=== PATIENT | female | born 1965 | race African-American/Black ===

== ENCOUNTER 2017-08-25 14:38 | Inpatient (IN) | payer OTHER ==
--- NOTE | 2017-08-25 15:34 | HP ---
JOSE PEREZ Rehab Assess/Revision - Admission History Admitted to Rehab from: [facility] Date of Admission to Rehab: 08/25/17 - Vital signs Vital Signs: Vital Signs Period Temp Pulse Resp BP Sys/Finley Pulse Ox Last 24 Hr 97.9 F 83 18 140/97 - Findings Detox History & Physical reviewed: Yes Concur with findings: Yes Comments/Additional Findings: transferred from detox to rehab admission as per protocol Inpatient Rehab Admission - Initial Determination Are CD services needed?: Yes Free of communicable disease: Yes Not in need of hospitalization: Yes - Rehab Admission Criteria Previous failed treatment: Yes Poor recovery environment: Yes Comorbidities: Yes Lacks judgement: No Patient is meeting Inpatient Rehab admission criteria:: Yes
[2017-08-25] MEDS ORDERED: IBUPROFEN 400 MG TABLET (FP) PO PRN (15:35)
[2017-08-25] MEDS ORDERED: MAG HYDROX/AL HYDROX/SIMETH 30 ML UNIT-DOSE CUP PO PRN (15:35)
[2017-08-25] MEDS ORDERED: ACETAMINOPHEN 325 MG TABLET (FP) PO PRN (15:35)
[2017-08-25] MEDS ORDERED: LOPERAMIDE HCL 2 MG CAPSULE PO PRN (15:35)
[2017-08-25] MEDS ORDERED: MAGNESIUM CITRATE 300 ML BOTTLE PO PRN (15:35)
[2017-08-25] MEDS ORDERED: NICOTINE POLACRILEX 2 MG GUM BUC PRN (15:35)
[2017-08-25] MEDS ORDERED: P-EPHED 60MG/TRIPROLIDI 2.5MG TABLET PO PRN (15:35)
[2017-08-25] MEDS ORDERED: MENTHOL/PHENOL 1 EACH UD MM PRN (15:35)
[2017-08-25] MEDS ORDERED: MAGNESIUM HYDROX 2400MG/30ML ORAL SUSPENSION 30 ML CUP PO PRN (15:35)
--- NOTE | 2017-08-25 16:08 | HP ---
Psychiatrist Admission - Data Date of interview: 08/25/17 Admission source: [address] [place] [address] Identifying data: This is the first admission to [address] [place] [address] rehabilitation for this 51 yo single AA mother of 34 yo daughter,resides with kathie,supported by [facility]. Medical History: Breast cancer,,HTN. Psychiatric History: Patient denies psychiatric history,but reports being depressed on and off since she was dx with Breast Cancer about 3 years ago.patient is not willing to start any psychotropic medications at present., stating that she will be stable without psych meds. Physical/Sexual Abuse/Trauma History: denies Vital Signs: Vital Signs - 24 hr 08/25/17 15:10 Temperature 97.9 F Pulse Rate 83 Respiratory 18 Rate Blood Pressure 140/97 Allergies/Adverse Reactions: Allergies Allergy/AdvReac Type Severity Reaction Status Date / Time No Known Allergies Allergy Verified 08/21/17 17:10 Date of last physical exam: 08/21/17 Concur with the findings of this exam: Yes - Substance Abuse/Tx History Hx Alcohol Use: Yes (drinking since her teens,i pint of rosmery daily) Hx Substance Use: Yes (crack since 37 y o,heroin since 31 yo 6 bags daily, cannabis since school ag) Substance Use Type: Alcohol, Cocaine Hx Substance Use Treatment: Yes (this is her first inpatient rehabilitation treatment) Mental Status Exam - Mental Status Exam Alert and Oriented to: Time, Place, Person Cognitive Function: Grossly Intact Patient Appearance: Unkempt Mood: Sad, Nervous, Anxious Affect: Labile Patient Behavior: Cooperative Speech Pattern: Clear Voice Loudness: Normal Thought Process: Goal Oriented Thought Disorder: Not Present Hallucinations: Denies Suicidal Ideation: Denies Homicidal Ideation: Denies Insight/Judgement: Fair Sleep: Fair Appetite: Good Muscle strength/Tone: Normal Gait/Station: Normal Psychiatric Findings - Problem List ([place] 1, 2,3) (1) Breast cancer Current Visit: Yes Status: Chronic (2) Cocaine dependence Current Visit: Yes Status: Chronic (3) Nicotine dependence Current Visit: Yes Status: Chronic (4) Substance induced mood disorder Current Visit: Yes Status: Chronic (5) Alcohol dependence Current Visit: Yes Status: Chronic - Initial Treatment Plan Initial Treatment Plan: Will monitor progress,consider antidepressant if needed..
[2017-08-25] MEDS: THIAMINE HCL 100 MG TABLET (FP) PO SCH (21:41)
[2017-08-26] MEDS ORDERED: ENALAPRIL MALEATE 2.5 MG TABLET (FP) PO SCH (10:30)
[2017-08-26] MEDS ORDERED: HYDROCHLOROTHIAZIDE 12.5 MG CAPSULE (FP) PO SCH (10:30)
[2017-08-26] MEDS: ASPIRIN 81 MG CHEWABLE TABLETS PO SCH (10:44)
[2017-08-26] MEDS: PRENATAL VITAMINS W/ FOLIC ACID TABLET (FP) PO SCH (10:44)
--- NOTE | 2017-08-26 12:08 | PN ---
[facility] Progress Note (SOAP) Subjective: would li ke to restart tamoxifen, c/oinsomnia needs to check cxr PPD+ Objective: 08/26/17 12:07 Vital Signs - 24 hr 08/25/17 08/26/17 08/26/17 15:10 06:48 10:58 Temperature 97.9 F 98.1 F Pulse Rate 83 90 86 Respiratory 18 18 16 Rate Blood Pressure 140/97 150/91 152/103 hypertensive, labs reviewed Assessment: 08/26/17 12:07 ca breast - restart tamoxifen htn- restart home bp medsications insomnia - melatonin 08/26/17 12:08 PPD+ - cxr result pending
--- NOTE | 2017-08-26 16:16 | PN ---
S Progress Note Note: called by nurse, bp still elevated after starting home meds, diet changed to low sodium, increase medications give additional dose now. hctz increased from 12.5 to 25mg, enalpril 2.5mg to 5mg
[2017-08-26] MEDS ORDERED: ENALAPRIL MALEATE 2.5 MG TABLET (FP) PO ONE (16:30)
[2017-08-26] MEDS ORDERED: HYDROCHLOROTHIAZIDE 12.5 MG CAPSULE (FP) PO ONE (16:45)
[2017-08-26] MEDS ORDERED: HYDROCHLOROTHIAZIDE 25 MG TABLET (FP) PO SCH (16:45)
[2017-08-26] MEDS: TAMOXIFEN CITRATE 10 MG TABLET PO SCH (17:10)
[2017-08-26] MEDS: THIAMINE HCL 100 MG TABLET (FP) PO SCH (21:36)
[2017-08-26] MEDS: MELATONIN 5 MG TABLETS PO SCH (22:21)
--- NOTE | 2017-08-27 07:31 | PN ---
S Progress Note Note: see for c/o elevated bp. client reports hx/o htn. denies any sx's at this time. she is not sure of her medications but states last taken about 2 weeks ago medication reviewed from out side pharmacy. client is on amlodipine 10mg enalapril 20mg at bed time as per pt chlorthalidone 25mg meds adjusted accordingly. give first dose now
[2017-08-27] MEDS ORDERED: PT OWN MED DRAWER 7, Y5N ONE ×2 (07:34→08:54)
[2017-08-27] MEDS: ASPIRIN 81 MG CHEWABLE TABLETS PO SCH ×2 (07:35→10:09)
[2017-08-27] MEDS: amLODIPine BESYLATE 10 MG TABLET (FP) PO SCH ×2 (07:35→09:16)
[2017-08-27] MEDS: CHLORTHALIDONE 25 MG TABLET PO SCH ×2 (08:19→09:16)
[2017-08-27] MEDS ORDERED: cloNIDine HCL 0.1 MG TABLET PO ONE (09:47)
[2017-08-27] MEDS ORDERED: HYDROCHLOROTHIAZIDE 25 MG TABLET (FP) PO SCH (10:00)
[2017-08-27] MEDS ORDERED: ASPIRIN 81 MG CHEWABLE TABLETS PO SCH (10:00)
[2017-08-27] MEDS: PRENATAL VITAMINS W/ FOLIC ACID TABLET (FP) PO SCH (10:08)
[2017-08-27] MEDS: TAMOXIFEN CITRATE 10 MG TABLET PO SCH (10:09)
--- NOTE | 2017-08-27 12:00 | PN ---
S Progress Note Note: CXR: neg tb, cardiomegaly with congestive changes, increased bp meds to imporve control inculding adding a stronger diuretic, essie santiago
[2017-08-27] MEDS ORDERED: ENALAPRIL MALEATE 5 MG TABLET (FP) PO SCH (12:15)
[2017-08-27] MEDS: ENALAPRIL MALEATE 10 MG TABLET (FP) PO SCH (18:05)
[2017-08-27] MEDS: THIAMINE HCL 100 MG TABLET (FP) PO SCH (21:01)
[2017-08-27] MEDS: MELATONIN 5 MG TABLETS PO SCH (21:57)
[2017-08-28] MEDS ORDERED: PT OWN MED DRAWER 7, Y5N ONE ×2 (08:40→09:57)
[2017-08-28] MEDS: ASPIRIN 81 MG CHEWABLE TABLETS PO SCH (09:55)
[2017-08-28] MEDS: amLODIPine BESYLATE 10 MG TABLET (FP) PO SCH (09:56)
[2017-08-28] MEDS: TAMOXIFEN CITRATE 10 MG TABLET PO SCH (09:56)
[2017-08-28] MEDS: CHLORTHALIDONE 25 MG TABLET PO SCH (09:56)
[2017-08-28] MEDS: PRENATAL VITAMINS W/ FOLIC ACID TABLET (FP) PO SCH (09:57)
[2017-08-28] MEDS: NICOTINE 14 MG/24 HOURS TOPICAL PATCH TD PRN (09:58)
--- NOTE | 2017-08-28 14:14 | PN ---
[facility] Progress Note Note: Patient c/o of dry skin to facial area and flaking, reports pain on the left thumb without decrease movement. Reports she thinks she hit her hand against something while she was using but does not recall. Vital Signs Temperature 97.3 F L 08/28/17 06:48 Pulse Rate 91 H 08/28/17 09:30 Respiratory Rate 18 08/28/17 06:48 Blood Pressure 126/86 08/28/17 09:30 O2 Sat by Pulse Oximetry (%) ROS: HR: denies no chest pain, palpitations, SOB Neuro: denies dizziness, or paresthesia, Musc: denies stiffness, c/p pain on the lef thumb skin: c/o itch and flaking attributes current soap she is using Assessment: GENERAL APPEARANCE: Well developed, well nourished, alert and cooperative, and appears to be in no acute distress. CARDIAC: Normal S1 and S2. No S3, S4 or murmurs. Rhythm is regular. No edema LUNGS: Clear to auscultation and percussion without rales, rhonchi, wheezing or diminished breath sounds. MUSKULOSKELETAL: ROM intact. No joint erythema or tenderness. Normal muscular development. Normal gait. + left thumb pain NEUROLOGICAL: CN II-XII intact. SKIN: Skin no lesions or eruptions. + dry flaky skin Plan: Dermatitis : [place]o soap and hydrocortisone lotion 1% Thumb injury unsp: tylenol, cold compress, xray Continue to monitor
[2017-08-28] MEDS: COLLOIDAL OATMEAL 1 BAR EACH TP PRN (18:11)
[2017-08-28] MEDS: ENALAPRIL MALEATE 10 MG TABLET (FP) PO SCH (18:11)
[2017-08-28] MEDS: THIAMINE HCL 100 MG TABLET (FP) PO SCH (21:41)
[2017-08-28] MEDS: MELATONIN 5 MG TABLETS PO SCH (21:41)
[2017-08-28] MEDS: diphenhydrAMINE HCL 50 MG CAPSULE PO PRN (22:26)
[2017-08-29] MEDS ORDERED: PT OWN MED DRAWER 7, Y5N ONE (08:23)
[2017-08-29] MEDS: CHLORTHALIDONE 25 MG TABLET PO SCH (10:28)
[2017-08-29] MEDS: ASPIRIN 81 MG CHEWABLE TABLETS PO SCH (10:28)
[2017-08-29] MEDS: PRENATAL VITAMINS W/ FOLIC ACID TABLET (FP) PO SCH (10:28)
[2017-08-29] MEDS: amLODIPine BESYLATE 10 MG TABLET (FP) PO SCH (10:28)
[2017-08-29] MEDS: TAMOXIFEN CITRATE 10 MG TABLET PO SCH (10:28)
[2017-08-29] MEDS: NICOTINE 14 MG/24 HOURS TOPICAL PATCH TD PRN (10:44)
--- NOTE | 2017-08-29 14:26 | PN ---
[facility] Progress Note (SOAP) Subjective: requesting results cxr and wrist xray otherwise well Objective: 08/29/17 14:24 Vital Signs - 24 hr 08/28/17 08/29/17 08/29/17 18:00 00:30 03:30 Temperature Pulse Rate 91 H Respiratory 17 18 Rate Blood Pressure 122/89 08/29/17 08/29/17 07:19 10:57 Temperature 98.0 F Pulse Rate 82 83 Respiratory 18 Rate Blood Pressure 142/89 127/85 labs reviewed, xrays reviewed - +cardiomegaly, neg fx Assessment: 08/29/17 14:25 HTN - cotnrolled on triple theary, patient counseled, thumb still sore - immobilize. no nsaids
[2017-08-29] MEDS: ENALAPRIL MALEATE 10 MG TABLET (FP) PO SCH (19:08)
[2017-08-29] MEDS: THIAMINE HCL 100 MG TABLET (FP) PO SCH (21:38)
[2017-08-29] MEDS: MELATONIN 5 MG TABLETS PO SCH (21:38)
[2017-08-29] MEDS: diphenhydrAMINE HCL 50 MG CAPSULE PO PRN (21:39)
[2017-08-30] MEDS ORDERED: PT OWN MED DRAWER 7, Y5N ONE (08:45)
[2017-08-30] MEDS: PRENATAL VITAMINS W/ FOLIC ACID TABLET (FP) PO SCH (09:29)
[2017-08-30] MEDS: ASPIRIN 81 MG CHEWABLE TABLETS PO SCH (09:29)
[2017-08-30] MEDS: CHLORTHALIDONE 25 MG TABLET PO SCH (09:29)
[2017-08-30] MEDS: TAMOXIFEN CITRATE 10 MG TABLET PO SCH (09:30)
[2017-08-30] MEDS: amLODIPine BESYLATE 10 MG TABLET (FP) PO SCH (09:30)
[2017-08-30] MEDS: NICOTINE 14 MG/24 HOURS TOPICAL PATCH TD PRN (11:00)
[2017-08-30] MEDS: ENALAPRIL MALEATE 10 MG TABLET (FP) PO SCH (17:35)
[2017-08-30] MEDS: THIAMINE HCL 100 MG TABLET (FP) PO SCH (21:04)
[2017-08-30] MEDS: MELATONIN 5 MG TABLETS PO SCH (22:23)
[2017-08-31] MEDS ORDERED: PT OWN MED DRAWER 7, Y5N ONE (07:54)
[2017-08-31] MEDS: PRENATAL VITAMINS W/ FOLIC ACID TABLET (FP) PO SCH (09:31)
[2017-08-31] MEDS: amLODIPine BESYLATE 10 MG TABLET (FP) PO SCH (09:31)
[2017-08-31] MEDS: ASPIRIN 81 MG CHEWABLE TABLETS PO SCH (09:31)
[2017-08-31] MEDS: TAMOXIFEN CITRATE 10 MG TABLET PO SCH (09:32)
[2017-08-31] MEDS: CHLORTHALIDONE 25 MG TABLET PO SCH (09:32)
[2017-08-31] MEDS: HYDROCORTISONE 1% TOPICAL LOTION 118 ML BOTTLE TP PRN (09:33)
[2017-08-31] MEDS: NICOTINE 14 MG/24 HOURS TOPICAL PATCH TD PRN (10:26)
[2017-08-31] MEDS: ENALAPRIL MALEATE 10 MG TABLET (FP) PO SCH (18:14)
[2017-08-31] MEDS: THIAMINE HCL 100 MG TABLET (FP) PO SCH (21:28)
[2017-08-31] MEDS: MELATONIN 5 MG TABLETS PO SCH (22:32)
[2017-09-01] MEDS ORDERED: PT OWN MED DRAWER 7, Y5N ONE ×2 (08:38→10:18)
[2017-09-01] MEDS: CHLORTHALIDONE 25 MG TABLET PO SCH (10:08)
[2017-09-01] MEDS: amLODIPine BESYLATE 10 MG TABLET (FP) PO SCH (10:08)
[2017-09-01] MEDS: TAMOXIFEN CITRATE 10 MG TABLET PO SCH (10:08)
[2017-09-01] MEDS: ASPIRIN 81 MG CHEWABLE TABLETS PO SCH (10:08)
[2017-09-01] MEDS: PRENATAL VITAMINS W/ FOLIC ACID TABLET (FP) PO SCH (10:08)
[2017-09-01] MEDS: ENALAPRIL MALEATE 10 MG TABLET (FP) PO SCH (18:00)
[2017-09-01] MEDS: MELATONIN 5 MG TABLETS PO SCH (21:38)
[2017-09-01] MEDS: THIAMINE HCL 100 MG TABLET (FP) PO SCH (21:38)
[2017-09-01] MEDS: MICONAZOLE NITRATE 2% VAGINAL CREAM 45 GM TUBE VG SCH (21:38)
[2017-09-01] MEDS ORDERED: MICONAZOLE NITRATE 100 MG SUPP SUPP.VAG PV SCH (22:00)
[2017-09-02] MEDS ORDERED: PT OWN MED DRAWER 7, Y5N ONE ×2 (07:56→09:31)
[2017-09-02] MEDS: HYDROCORTISONE 1% TOPICAL LOTION 118 ML BOTTLE TP PRN (07:56)
[2017-09-02] MEDS: CHLORTHALIDONE 25 MG TABLET PO SCH (10:22)
[2017-09-02] MEDS: amLODIPine BESYLATE 10 MG TABLET (FP) PO SCH (10:23)
[2017-09-02] MEDS: ASPIRIN 81 MG CHEWABLE TABLETS PO SCH (10:23)
[2017-09-02] MEDS: PRENATAL VITAMINS W/ FOLIC ACID TABLET (FP) PO SCH (10:23)
[2017-09-02] MEDS: TAMOXIFEN CITRATE 10 MG TABLET PO SCH (16:34)
--- NOTE | 2017-09-02 17:33 | PN ---
[facility] Progress Note Note: Patiet c/o of pain on the left thumb Vital Signs Temperature 97.6 F 09/02/17 07:17 Pulse Rate 86 09/02/17 10:00 Respiratory Rate 18 09/02/17 07:17 Blood Pressure 128/84 09/02/17 10:00 O2 Sat by Pulse Oximetry (%) x-rays reviewed with patient, no fracture or edema present. Plan: Continue Ibuprofen PRN Cold compress PRN Continue to monitor
[2017-09-02] MEDS: ENALAPRIL MALEATE 10 MG TABLET (FP) PO SCH (18:24)
[2017-09-02] MEDS: MELATONIN 5 MG TABLETS PO SCH (21:36)
[2017-09-02] MEDS: MICONAZOLE NITRATE 2% VAGINAL CREAM 45 GM TUBE VG SCH (21:36)
[2017-09-02] MEDS: THIAMINE HCL 100 MG TABLET (FP) PO SCH (21:36)
[2017-09-03] MEDS: guaiFENesin/D-METHORPHAN HB 10 ML UNIT-DOSE CUPS PO PRN ×2 (03:37→22:12)
[2017-09-03] MEDS: COLLOIDAL OATMEAL 1 BAR EACH TP PRN (07:36)
[2017-09-03] MEDS ORDERED: PT OWN MED DRAWER 7, Y5N ONE (08:45)
[2017-09-03] MEDS: PRENATAL VITAMINS W/ FOLIC ACID TABLET (FP) PO SCH (10:31)
[2017-09-03] MEDS: amLODIPine BESYLATE 10 MG TABLET (FP) PO SCH (10:31)
[2017-09-03] MEDS: CHLORTHALIDONE 25 MG TABLET PO SCH (10:31)
[2017-09-03] MEDS: TAMOXIFEN CITRATE 10 MG TABLET PO SCH (10:31)
[2017-09-03] MEDS: ASPIRIN 81 MG CHEWABLE TABLETS PO SCH (10:32)
[2017-09-03] MEDS: ENALAPRIL MALEATE 10 MG TABLET (FP) PO SCH (19:00)
[2017-09-03] MEDS: MICONAZOLE NITRATE 2% VAGINAL CREAM 45 GM TUBE VG SCH (21:23)
[2017-09-03] MEDS: MELATONIN 5 MG TABLETS PO SCH (21:24)
[2017-09-03] MEDS: THIAMINE HCL 100 MG TABLET (FP) PO SCH (21:24)
[2017-09-04] MEDS ORDERED: PT OWN MED DRAWER 7, Y5N ONE (08:39)
[2017-09-04] MEDS: TAMOXIFEN CITRATE 10 MG TABLET PO SCH (09:51)
[2017-09-04] MEDS: ASPIRIN 81 MG CHEWABLE TABLETS PO SCH (09:51)
[2017-09-04] MEDS: PRENATAL VITAMINS W/ FOLIC ACID TABLET (FP) PO SCH (09:52)
[2017-09-04] MEDS: CHLORTHALIDONE 25 MG TABLET PO SCH (09:52)
[2017-09-04] MEDS: amLODIPine BESYLATE 10 MG TABLET (FP) PO SCH (09:52)
[2017-09-04] MEDS: HYDROCORTISONE 1% TOPICAL LOTION 118 ML BOTTLE TP PRN (09:52)
[2017-09-04] MEDS: ENALAPRIL MALEATE 10 MG TABLET (FP) PO SCH (17:59)
[2017-09-04] MEDS: MELATONIN 5 MG TABLETS PO SCH (21:33)
[2017-09-04] MEDS: THIAMINE HCL 100 MG TABLET (FP) PO SCH (21:33)
[2017-09-04] MEDS: MICONAZOLE NITRATE 2% VAGINAL CREAM 45 GM TUBE VG SCH (21:34)
[2017-09-05] MEDS ORDERED: PT OWN MED DRAWER 7, Y5N ONE (09:16)
[2017-09-05] MEDS: PRENATAL VITAMINS W/ FOLIC ACID TABLET (FP) PO SCH (10:33)
[2017-09-05] MEDS: ASPIRIN 81 MG CHEWABLE TABLETS PO SCH (10:33)
[2017-09-05] MEDS: amLODIPine BESYLATE 10 MG TABLET (FP) PO SCH (10:33)
[2017-09-05] MEDS: CHLORTHALIDONE 25 MG TABLET PO SCH (10:33)
[2017-09-05] MEDS: TAMOXIFEN CITRATE 10 MG TABLET PO SCH (10:34)
[2017-09-05] MEDS: ENALAPRIL MALEATE 10 MG TABLET (FP) PO SCH (17:53)
[2017-09-05] MEDS: THIAMINE HCL 100 MG TABLET (FP) PO SCH (21:42)
[2017-09-05] MEDS: MELATONIN 5 MG TABLETS PO SCH (21:42)
[2017-09-05] MEDS: MICONAZOLE NITRATE 2% VAGINAL CREAM 45 GM TUBE VG SCH (21:58)
[2017-09-06] MEDS: HYDROCORTISONE 1% TOPICAL LOTION 118 ML BOTTLE TP PRN (10:26)
[2017-09-06] MEDS: ASPIRIN 81 MG CHEWABLE TABLETS PO SCH (10:26)
[2017-09-06] MEDS: amLODIPine BESYLATE 10 MG TABLET (FP) PO SCH (10:26)
[2017-09-06] MEDS: PRENATAL VITAMINS W/ FOLIC ACID TABLET (FP) PO SCH (10:26)
[2017-09-06] MEDS: CHLORTHALIDONE 25 MG TABLET PO SCH (10:27)
[2017-09-06] MEDS: TAMOXIFEN CITRATE 10 MG TABLET PO SCH (10:27)
[2017-09-06] MEDS: ENALAPRIL MALEATE 10 MG TABLET (FP) PO SCH (18:46)
[2017-09-06] MEDS: MICONAZOLE NITRATE 2% VAGINAL CREAM 45 GM TUBE VG SCH (21:49)
[2017-09-06] MEDS: MELATONIN 5 MG TABLETS PO SCH (21:49)
[2017-09-06] MEDS: THIAMINE HCL 100 MG TABLET (FP) PO SCH (21:49)
[2017-09-07] MEDS: guaiFENesin/D-METHORPHAN HB 10 ML UNIT-DOSE CUPS PO PRN (04:18)
[2017-09-07] MEDS: HYDROCORTISONE 1% TOPICAL LOTION 118 ML BOTTLE TP PRN (10:15)
[2017-09-07] MEDS: CHLORTHALIDONE 25 MG TABLET PO SCH (10:16)
[2017-09-07] MEDS: ASPIRIN 81 MG CHEWABLE TABLETS PO SCH (10:16)
[2017-09-07] MEDS: TAMOXIFEN CITRATE 10 MG TABLET PO SCH (10:16)
[2017-09-07] MEDS: PRENATAL VITAMINS W/ FOLIC ACID TABLET (FP) PO SCH (10:16)
[2017-09-07] MEDS: amLODIPine BESYLATE 10 MG TABLET (FP) PO SCH (10:16)
[2017-09-07] MEDS: ENALAPRIL MALEATE 10 MG TABLET (FP) PO SCH (17:59)
[2017-09-07] MEDS: THIAMINE HCL 100 MG TABLET (FP) PO SCH (21:40)
[2017-09-07] MEDS: MELATONIN 5 MG TABLETS PO SCH (21:40)
[2017-09-07] MEDS: MICONAZOLE NITRATE 2% VAGINAL CREAM 45 GM TUBE VG SCH (21:42)
[2017-09-08] MEDS: guaiFENesin/D-METHORPHAN HB 10 ML UNIT-DOSE CUPS PO PRN (04:42)
[2017-09-08] MEDS ORDERED: PT OWN MED DRAWER 7, Y5N ONE (08:12)
[2017-09-08 08:41] VITALS: BP 118/72; PULSE 76; TEMP 98
--- NOTE | 2017-09-08 09:57 | PN ---
Psychiatric Progress Note Vital Signs: Vital Signs Period Temp Pulse Resp BP Sys/Finley Pulse Ox Last 24 Hr 97.6 F-98 F 71-85 18-18 110-129/72-85 Date of Session: 09/08/17 Chief Complaint:: Discharge visit HPI: patient addressed Alcohol and Cocaine dependence comorbid with Substance induced mood disorder. ROS: H/O Breast cancer. Current Medications: Active Medications Generic Name Dose Route Start Last Admin Trade Name Freq PRN Reason Stop Dose Admin Acetaminophen 650 mg 08/25/17 15:35 Tylenol - PO Q4H PRN FEVER Al Hydroxide/Mg Hydroxide 30 ml 08/25/17 15:35 09/02/17 18:27 Mylanta Oral Suspension - PO 30 ml Q6H PRN Administration DYSPEPSIA Amlodipine Besylate 10 mg 08/27/17 07:45 09/07/17 10:16 Norvasc - PO 10 mg DAILY ROSALIA Administration Aspirin 81 mg 08/26/17 10:30 09/07/17 10:16 Asa - PO 81 mg DAILY ROSALIA Administration Chlorthalidone 25 mg 08/27/17 07:45 09/07/17 10:16 Hygroton - PO 25 mg DAILY ROSALIA Administration Colloidal Oatmeal 1 applic 08/28/17 14:07 09/03/17 07:36 Aveeno Soap - TP 1 applic DAILY PRN Administration HYGEINE Diphenhydramine HCl 50 mg 08/26/17 09:17 08/29/17 21:39 Benadryl - PO 50 mg HS PRN Administration INSOMNIA Enalapril Maleate 10 mg 08/27/17 18:00 09/07/17 17:59 Vasotec - PO 10 mg DAILY@1800 ROSALIA Administration Eucalyptus/Menthol/Phenol/Sorbitol 1 each 08/25/17 15:35 Cepastat Lozenge - MM Q4H PRN SORE THROAT Guaifenesin 10 ml 08/25/17 15:35 09/08/17 04:42 Robitussin Dm - PO 10 ml Q6H PRN Administration COUGH Hydrocortisone 1 applic 08/28/17 14:25 09/07/17 10:15 Hytone 1% Lotion - TP 1 applic DAILY PRN Administration DRY SKIN Loperamide HCl 4 mg 08/25/17 15:35 Imodium - PO Q6H PRN DIARRHEA Magnesium Citrate 300 ml 08/25/17 15:35 Citroma - PO Q48H PRN CONSTIPATION Magnesium Hydroxide 30 ml 08/25/17 15:35 09/07/17 21:41 Milk Of Magnesia - PO 30 ml DAILY PRN Administration CONSTIPATION Melatonin 5 mg 08/26/17 22:00 09/07/17 21:40 Melatonin PO 5 mg HS ROSALIA Administration Nicotine 14 mg 08/25/17 16:45 08/31/17 10:26 Nicoderm Patch - TD 14 mg DAILY PRN Administration WITHDRAWAL(CONT SUBST) Nicotine Polacrilex 2 mg 08/25/17 15:35 Nicorette Gum - BUC Q2H PRN NICOTINE REPLACEMENT RX Multivit/Folic Acid/Iron 1 tab 08/26/17 10:00 09/07/17 10:16 Vitamins (Sjr) - PO 1 tab DAILY ROSALIA Administration Pseudoephedrine/Triprolidine 1 combo 08/25/17 15:35 Actifed - PO TID PRN NASAL CONGESTION Tamoxifen Citrate 20 mg 08/26/17 12:15 09/07/17 10:16 Tamoxifen Citrate PO 20 mg DAILY ROSALIA Administration Thiamine HCl 100 mg 08/25/17 22:00 09/07/17 21:40 Vitamin B1 - PO 100 mg HS ROSALIA Administration Current Side Effect: No Lab tests ordered: No Lab tests reviewed: Yes Provider note:: Patient completed this program today.She has met her treatment goals and will continue to address her issues on outpatient basis on [facility] OPD. Patient identifies areas of difficulties and ways she plans to utilize to maintain recovery.Coping skills,support system has been discussed as well. Patient is stable for discharge today. Total face to face time:: 25 Mental Status Exam - Mental Status Exam Alert and Oriented to: Time, Place, Person Cognitive Function: Grossly Intact Patient Appearance: Well Groomed Mood: Euthymic Affect: Appropriate, Mood Congruent Patient Behavior: Cooperative Speech Pattern: Clear Voice Loudness: Normal Thought Process: Goal Oriented Thought Disorder: Not Present Hallucinations: Denies Suicidal Ideation: Denies Homicidal Ideation: Denies Insight/Judgement: Fair Sleep: Well Appetite: Good Muscle strength/Tone: Normal Gait/Station: Normal
[2017-09-08] MEDS: PRENATAL VITAMINS W/ FOLIC ACID TABLET (FP) PO SCH (10:16)
[2017-09-08] MEDS: ASPIRIN 81 MG CHEWABLE TABLETS PO SCH (10:16)
[2017-09-08] MEDS: amLODIPine BESYLATE 10 MG TABLET (FP) PO SCH (10:16)
[2017-09-08] MEDS: TAMOXIFEN CITRATE 10 MG TABLET PO SCH (10:16)
[2017-09-08] MEDS: CHLORTHALIDONE 25 MG TABLET PO SCH (10:16)
== END 2017-09-08 10:25 | disposition home or self-care (01) | DRG 772 ==
LOC: YASAS 14:38 → Y3E 14:40
PROVIDERS: ADMIT Psychiatry & Neurology Psychiatry; ATTEND Psychiatry & Neurology Psychiatry
PROC: HZ42ZZZ Group Counseling for Substance Abuse Treatment, Cognitive-Behavioral (ICD-10-PCS; principal; 2017-08-25)
DX: F10.20 Alcohol dependence, uncomplicated (principal); F14.20 Cocaine dependence, uncomplicated; F17.210 Nicotine dependence, cigarettes, uncomplicated; F19.24 Other psychoactive substance dependence with psychoactive substance-induced mood disorder; F32.9 Major depressive disorder, single episode, unspecified; G47.00 Insomnia, unspecified; I10 Essential (primary) hypertension; L30.9 Dermatitis, unspecified; R76.11 Nonspecific reaction to tuberculin skin test without active tuberculosis; C50.919 Malignant neoplasm of unspecified site of unspecified female breast; S69.82XA Other specified injuries of left wrist, hand and finger(s), initial encounter; X58.XXXA Exposure to other specified factors, initial encounter; Y93.89 Activity, other specified; Y92.89 Other specified places as the place of occurrence of the external cause; Y99.8 Other external cause status
CPT/HCPCS: 71045-TC-FY; 73110-TC-LR-FY; 73130-TC-LR-FY; J0735

== ENCOUNTER 2018-11-04 10:44 | Inpatient (IN) | payer OTHER ==
[2018-11-04 12:51] VITALS: BMI 27.9
--- NOTE | 2018-11-04 15:14 | HP ---
CIWA Score Nausea/Vomitin Muscle Tremors: 2 Anxiety: 2 Agitation: 2 Paroxysmal Sweats: 1-Minimal Palms Moist Orientation: 0-Oriented Tacttile Disturbances: 1-Very Mild Itch/Numbness Auditory Disturbances: 1-Very Mild Visual Disturbances: 0-None Headache: 2-Mild CIWA-Ar Total Score: 13 - Admission Criteria OASAS Guidelines: Admission for Medically Managed Detox: Requires at least one of the followin. CIWA greater than 12 2. Seizures within the past 24 hours 3. Delirium tremens within the past 24 hours 4. Hallucinations within the past 24 hours 5. Acute intervention needed for co occurring medical disorder 6. Acute intervention needed for co occurring psychiatric disorder 7. Severe withdrawal that cannot be handled at a lower level of care (continued vomiting, continued diarrhea, abnormal vital signs) requiring intravenous medication and/or fluids 8. Admission ROS S - HPI Chief Complaint: i need help to stop drinking alcohol cocaine,marijuana Allergies/Adverse Reactions: Allergies Allergy/AdvReac Type Severity Reaction Status Date / Time No Known Allergies Allergy Verified 08/21/17 17:10 History of Present Illness: this 53 years old female with alcohol,cocaine and marijuana dependence,seeking detox,withdrawal symptom, had previous admissions in detox before alcohol related seizure last detox [facility] 08/21/17 to 08/25/17,rehab 08/25/17 to 09/08/17 nicotine dependence 1 pack/day,would like nicotine patch and gum weight loss longest period of sobriety 4 years plan for rehab after detox hypertension on med Exam Limitations: No Limitations - Ebola screening Have you traveled outside of the country in the last 21 days: No (N) Have you had contact with anyone from an Ebola affected area: No Do you have a fever: No - Review of Systems Constitutional: Loss of Appetite, Malaise, Night Sweats, Changes in sleep, Weakness, Unintentional Wgt. Loss EENT: reports: Tearing, Nose Congestion Respiratory: reports: No Symptoms reported Cardiac: reports: No Symptoms Reported GI: reports: Diarrhea, Nausea, Abdominal cramping : reports: No Symptoms Reported Musculoskeletal: reports: Back Pain, Muscle Pain Integumentary: reports: Dryness Neuro: reports: Tremors Endocrine: reports: No Symptoms Reported Hematology: reports: No Symptoms Reported Psychiatric: reports: No Sypmtoms Reported, Judgement Intact, Mood/Affect Appropiate, Orientated x3 Other Systems: Reviewed and Negative Patient History - Patient Medical History Hx Anemia: No Hx Asthma: No Hx Chronic Obstructive Pulmonary Disease (COPD): No Hx Cancer: Yes (stage 1 s/o lumpectomy and radiation left seen pmd) Hx Cardiac Disorders: No Hx Congestive Heart Failure: No Hx Hypertension: Yes (ON MEDS.) Hx Hypercholesterolemia: No Hx Pacemaker: No HX Cerebrovascular Accident: No Hx Seizures: No Hx Dementia: No Hx Diabetes: No Hx Gastrointestinal Disorders: No Hx Liver Disease: No Hx Genitourinary Disorders: No Hx Sexually Transmitted Disorders: No Hx Renal Disease (ESRD): No Hx Thyroid Disease: No Hx Human Immunodeficiency Virus (HIV): No (last 2013 negative) Hx Hepatitis C: No Hx Depression: No Hx Suicide Attempt: No Hx Bipolar Disorder: No Hx Schizophrenia: No Other Medical History: no suiidal,no homicidal - Patient Surgical History Past Surgical History: No Hx Neurologic Surgery: No Hx Cataract Extraction: No Hx Cardiac Surgery: No Hx Lung Surgery: No Hx Breast Surgery: Yes (LUMPECTOMY IN [address] [facility]) Hx Breast Biopsy: No Hx Abdominal Surgery: No Hx Appendectomy: No Hx Cholecystectomy: No Hx Genitourinary Surgery: No Hx Section: No Hx Orthopedic Surgery: No Hx Hysterectomy: No Anesthesia Reaction: No - PPD History Previous Implant?: Yes Documented Results: Positive w/o proof Implanted On Prior [facility] Admission?: No PPD to be Administered?: No - Reproductive History Patient is a Female of Child Bearing Age (11 -55 yrs old): Yes Last Menstrual Period: 10/10/08 Patient : No - Smoking Cessation Smoking history: Current every day smoker Have you smoked in the past 12 months: Yes Aproximately how many cigarettes per day: 20 Hx Chewing Tobacco Use: No Initiated information on smoking cessation: Yes 'Breaking Loose' booklet given: 11/04/18 - Substance & Tx. History Hx Alcohol Use: Yes Hx Substance Use: Yes Substance Use Type: Alcohol, Cocaine Hx Substance Use Treatment: Yes ([facility] 08/21/17 to 08/25/17,rehab 08/25/17 to 07/28) - Substances abused Alcohol Substance route: Oral Frequency: Daily Amount used: Beers- 1 6pk+ Vodka 1pt Age of first use: 14 Date of last use: 11/04/18 Crack Substance route: Smoking Frequency: Daily Amount used: 2 gm Age of first use: 16 Date of last use: 11/04/18 Marijuana/Hashish Substance route: Smoking Frequency: 1-3 times last 30 days Amount used: 5$ Age of first use: 12 Date of last use: 10/31/18 Family Disease History - Family Disease History Family Disease History: Other: Father (alcoholism) Admission Physical Exam [facility] - Vital Signs Vital Signs: Vital Signs - 24 hr 11/04/18 12:44 Temperature 97.8 F Pulse Rate 73 Respiratory 20 Rate Blood Pressure 129/84 - Physical General Appearance: Yes: Moderate Distress, Tremorous, Irritable, Sweating, Anxious HEENTM: Yes: Normal ENT Inspection, MATTHEW, Pharynx Normal Respiratory: Yes: Lungs Clear, Normal Breath Sounds, No Respiratory Distress Neck: Yes: Within Normal Limits, Supple, Trachea in good position Breast: Yes: Breast Exam Deferred Cardiology: Yes: Within Normal Limits, Regular Rhythm, Regular Rate, S1, S2 Abdominal: Yes: Within Normal Limits, Normal Bowel Sounds, Soft Genitourinary: Yes: Within Normal Limits Back: Yes: Normal Inspection, Muscle Spasm Musculoskeletal: Yes: full range of Motion, Back pain, Muscle Pain Extremities: Yes: Tremors Neurological: Yes: travel nurse II-XII NML intact, Fully Oriented, Alert, Motor Strength 5/5 Integumentary: Yes: Dry Lymphatic: Yes: Within Normal Limits - Diagnostic (1) Alcohol dependence with uncomplicated withdrawal Current Visit: No Status: Acute (2) Dehydration Current Visit: No Status: Acute (3) PPD positive Current Visit: No Status: Acute (4) Cocaine dependence Current Visit: No Status: Chronic (5) Nicotine dependence Current Visit: No Status: Chronic (6) Cannabis abuse Current Visit: Yes Status: Acute Cleared for Admission [facility] - Detox or Rehab [facility] Level of Care: Medically Managed Detox Regimen/Protocol: Librium Breathalyzer - Breathalyzer Breathalyzer: 0 Urine Drug Screen - Test Device Lot number: [id number] Expiration date: 10/07/19 - Control Is test valid?: Yes - Results Drug screen NEGATIVE: No Urine drug screen results: THC-Marijuana, GUILLERMINA-Cocaine, BZO-Benzodiazepines Inpatient Rehab Admission - Rehab Decision to Admit Inpatient rehab admission?: No
[2018-11-04] MEDS ORDERED: chlordiazePOXIDE HCL 25 MG CAPSULE PO PRN (15:31)
[2018-11-04] MEDS ORDERED: MAG HYDROX/AL HYDROX/SIMETH 30 ML UNIT-DOSE CUP PO PRN (16:13)
[2018-11-04] MEDS ORDERED: MENTHOL/PHENOL 1 EACH UD MM PRN (16:13)
[2018-11-04] MEDS ORDERED: MAGNESIUM HYDROX 2400MG/30ML ORAL SUSPENSION 30 ML CUP PO PRN (16:13)
[2018-11-04] MEDS ORDERED: ACETAMINOPHEN 325 MG TABLET (FP) PO PRN ×2 (16:13)
[2018-11-04] MEDS ORDERED: MAGNESIUM CITRATE 300 ML BOTTLE PO PRN (16:13)
[2018-11-04] MEDS: ENALAPRIL MALEATE 10 MG TABLET (FP) PO SCH (18:46)
[2018-11-04] MEDS: THIAMINE HCL 100 MG TABLET (FP) PO SCH (22:44)
[2018-11-04] MEDS: chlordiazePOXIDE HCL 25 MG CAPSULE PO SCH (22:44)
[2018-11-05] MEDS: chlordiazePOXIDE HCL 25 MG CAPSULE PO SCH ×4 (05:29→22:49)
[2018-11-05] MEDS: METHOCARBAMOL 500 MG TABLET PO PRN (05:31)
[2018-11-05] MEDS ORDERED: IBUPROFEN 400 MG TABLET (FP) PO PRN (10:29)
[2018-11-05] MEDS: CHLORTHALIDONE 25 MG TABLET PO SCH (10:30)
[2018-11-05] MEDS: amLODIPine BESYLATE 10 MG TABLET (FP) PO SCH (10:30)
[2018-11-05] MEDS: PRENATAL VITAMINS W/ FOLIC ACID TABLET (FP) PO SCH (10:30)
[2018-11-05] MEDS: ASPIRIN 81 MG CHEWABLE TABLETS PO SCH (10:30)
[2018-11-05] MEDS: LIDOCAINE 5% TOPICAL PATCH TP SCH (11:07)
--- NOTE | 2018-11-05 12:02 | PN ---
S CIWA - CIWA Score Nausea/Vomitin-No Nausea/No Vomiting Muscle Tremors: 3 Anxiety: 3 Agitation: 3 Paroxysmal Sweats: 3 Orientation: 0-Oriented Tacttile Disturbances: 0-None Auditory Disturbances: 0-None Visual Disturbances: 0-None Headache: 0-None Present CIWA-Ar Total Score: 12 [facility] Progress Note (SOAP) Subjective: body aches, back and knee sweats shakes interrupted sleep Objective: 11/05/18 12:01 Vital Signs Temperature 97.7 F 11/05/18 10:01 Pulse Rate 78 11/05/18 10:01 Respiratory Rate 18 11/05/18 10:01 Blood Pressure 143/99 11/05/18 10:01 O2 Sat by Pulse Oximetry (%) Laboratory Tests 11/04/18 12:51 POC Urine HCG, Qual Negative rest of labs pending aaox3 ambulating no acute distress Assessment: 11/05/18 12:01 withdrawal sx Plan: continue detox increase fluids lidocaine patch ordered for knee and back motrin 800mg prn
[2018-11-05 12:18] LABS: BASO % 1.2 % (0-2.0); EOS % 4.9 % (0-4.5); HEMATOCRIT 45.1 % (32.4-45.2); HEMOGLOBIN 15.1 GM/dL (10.7-15.3); LYMPH % 31.4 % (8-40); MCH 33.4 pg (25.7-33.7); MCHC 33.5 g/dl (32.0-36.0); MEAN CELL VOLUME 99.7 fl (80-96); MEAN PLT VOLUME 9.7 fl (7.5-11.1); NEUT % 53.5 % (42.8-82.8); PLATELET COUNT 221 K/MM3 (134-434); RBC 4.53 M/mm3 (3.60-5.2); RDW 15.4 % (11.6-15.6); WHITE BLOOD COUNT 6.2 K/mm3 (4.0-10.0)
[2018-11-05 12:23] LABS: ALBUMIN 3.7 g/dl (3.4-5.0); BILIRUBIN,TOTAL 0.5 mg/dL (0.2-1); CALCIUM 9.6 mg/dL (8.5-10.1); CREATININE 1.4 mg/dL (0.55-1.3); POTASSIUM 3.7 mmol/L (3.5-5.1); TOT PROT 7.1 g/dl (6.4-8.2)
[2018-11-05 15:16] LABS: MACROCYTOSIS 1+
[2018-11-05] MEDS: ENALAPRIL MALEATE 10 MG TABLET (FP) PO SCH (17:56)
[2018-11-05] MEDS: THIAMINE HCL 100 MG TABLET (FP) PO SCH (22:50)
[2018-11-05] MEDS: LIDOCAINE PATCH REMOVAL MC SCH (22:52)
[2018-11-06] MEDS: chlordiazePOXIDE HCL 25 MG CAPSULE PO SCH ×3 (05:50→17:14)
[2018-11-06] MEDS: METHOCARBAMOL 500 MG TABLET PO PRN (06:59)
[2018-11-06] MEDS: ASPIRIN 81 MG CHEWABLE TABLETS PO SCH (10:05)
[2018-11-06] MEDS: amLODIPine BESYLATE 10 MG TABLET (FP) PO SCH (10:06)
[2018-11-06] MEDS: LIDOCAINE 5% TOPICAL PATCH TP SCH (10:06)
[2018-11-06] MEDS: PRENATAL VITAMINS W/ FOLIC ACID TABLET (FP) PO SCH (10:06)
[2018-11-06] MEDS: CHLORTHALIDONE 25 MG TABLET PO SCH (10:07)
--- NOTE | 2018-11-06 12:31 | PN ---
S CIWA - CIWA Score Nausea/Vomitin-No Nausea/No Vomiting Muscle Tremors: 2 Anxiety: 2 Agitation: 3 Paroxysmal Sweats: 2 Orientation: 0-Oriented Tacttile Disturbances: 0-None Auditory Disturbances: 0-None Visual Disturbances: 0-None Headache: 0-None Present CIWA-Ar Total Score: 9 [facility] Progress Note (SOAP) Subjective: sweats shakes body aches i feel like my heart races at times Objective: 11/06/18 12:27 Vital Signs Temperature 98.1 F 11/06/18 10:36 Pulse Rate 88 11/06/18 10:36 Respiratory Rate 18 11/06/18 10:36 Blood Pressure 134/91 11/06/18 10:36 O2 Sat by Pulse Oximetry (%) Laboratory Tests 11/04/18 11/05/18 11/05/18 12:51 09:00 09:00 WBC 6.2 RBC 4.53 Hgb 15.1 Hct 45.1 MCV 99.7 H MCH 33.4 MCHC 33.5 RDW 15.4 Plt Count 221 D MPV 9.7 Absolute Neuts (auto) 3.3 Total Counted 100 Neutrophils % 53.5 Neutrophils % (Manual) 62.0 Band Neutrophils % 1.0 Lymphocytes % 31.4 Lymphocytes % (Manual) 30.0 Monocytes % 9.0 Monocytes % (Manual) 2 L Eosinophils % 4.9 H Eosinophils % (Manual) 4.0 Basophils % 1.2 Basophils % (Manual) 0.0 Myelocytes % (Man) 2 Nucleated RBC % 0 Macrocytosis 1+ Sodium 142 Potassium 3.7 Chloride 102 Carbon Dioxide 34 H Anion Gap 5 L BUN 26 H Creatinine 1.4 H Est GFR (CKD-EPI)AfAm 49.25 Est GFR (CKD-EPI)NonAf 42.49 Random Glucose 127 H Calcium 9.6 Total Bilirubin 0.5 AST 26 ALT 41 Alkaline Phosphatase 120 H Total Protein 7.1 Albumin 3.7 POC Urine HCG, Qual Negative RPR Titer 11/05/18 09:00 WBC RBC Hgb Hct MCV MCH MCHC RDW Plt Count MPV Absolute Neuts (auto) Total Counted Neutrophils % Neutrophils % (Manual) Band Neutrophils % Lymphocytes % Lymphocytes % (Manual) Monocytes % Monocytes % (Manual) Eosinophils % Eosinophils % (Manual) Basophils % Basophils % (Manual) Myelocytes % (Man) Nucleated RBC % Macrocytosis Sodium Potassium Chloride Carbon Dioxide Anion Gap BUN Creatinine Est GFR (CKD-EPI)AfAm Est GFR (CKD-EPI)NonAf Random Glucose Calcium Total Bilirubin AST ALT Alkaline Phosphatase Total Protein Albumin POC Urine HCG, Qual RPR Titer Nonreactive labs noted aaox3 ambulating no acute distress HR 88. this was told to pt but she will feel more comfortable if she had an ekg. Assessment: 11/06/18 12:28 withdrawal sx assessed cardiac rhythm; regular HR rhythm with auscultation, no gallops, no murmur noted. however will order ekg to confirm my assessment Plan: continue detox increase fluids ekg ordered
[2018-11-06] MEDS: ENALAPRIL MALEATE 10 MG TABLET (FP) PO SCH (17:20)
--- NOTE | 2018-11-06 19:53 | PN ---
S Progress Note Note: Today' EKG reviewed. No significant changes from prior EKG noted from 08/21/17 EKG.
[2018-11-06] MEDS: LIDOCAINE PATCH REMOVAL MC SCH (22:38)
[2018-11-06] MEDS: chlordiazePOXIDE HCL 10 MG CAPSULE PO SCH (22:38)
[2018-11-06] MEDS: THIAMINE HCL 100 MG TABLET (FP) PO SCH (22:39)
[2018-11-06] MEDS ORDERED: chlordiazePOXIDE HCL 10 MG CAPSULE PO PRN (23:00)
[2018-11-07] MEDS: chlordiazePOXIDE HCL 10 MG CAPSULE PO SCH ×4 (05:37→22:27)
[2018-11-07] MEDS: ASPIRIN 81 MG CHEWABLE TABLETS PO SCH (10:07)
[2018-11-07] MEDS: CHLORTHALIDONE 25 MG TABLET PO SCH (10:08)
[2018-11-07] MEDS: amLODIPine BESYLATE 10 MG TABLET (FP) PO SCH (10:08)
[2018-11-07] MEDS: LIDOCAINE 5% TOPICAL PATCH TP SCH (10:08)
[2018-11-07] MEDS: PRENATAL VITAMINS W/ FOLIC ACID TABLET (FP) PO SCH (10:09)
--- NOTE | 2018-11-07 12:40 | PN ---
S CIWA - CIWA Score Nausea/Vomitin-No Nausea/No Vomiting Muscle Tremors: 1-None Visible, but [place] Anxiety: 2 Agitation: 2 Paroxysmal Sweats: 2 Orientation: 0-Oriented Tacttile Disturbances: 0-None Auditory Disturbances: 0-None Visual Disturbances: 0-None Headache: 0-None Present CIWA-Ar Total Score: 7 S Progress Note (SOAP) Subjective: c/o interrupted sleep, mild anxiety, and back pain Objective: 11/07/18 12:39 Vital Signs 11/07/18 11/07/18 11/07/18 06:00 07:05 09:22 Temperature 97.7 F 97.8 F Pulse Rate 81 90 103 H Respiratory 18 18 18 Rate Blood Pressure 143/101 H 133/84 141/97 Lab Results WBC 6.2 K/mm3 (4.0-10.0) 11/05/18 09:00 RBC 4.53 M/mm3 (3.60-5.2) 11/05/18 09:00 Hgb 15.1 GM/dL (10.7-15.3) 11/05/18 09:00 Hct 45.1 % (32.4-45.2) 11/05/18 09:00 MCV 99.7 fl (80-96) H 11/05/18 09:00 MCHC 33.5 g/dl (32.0-36.0) 11/05/18 09:00 RDW 15.4 % (11.6-15.6) 11/05/18 09:00 Plt Count 221 K/MM3 (134-434) D 11/05/18 09:00 Sodium 142 mmol/L (136-145) 11/05/18 09:00 Potassium 3.7 mmol/L (3.5-5.1) 11/05/18 09:00 Chloride 102 mmol/L (98-107) 11/05/18 09:00 Carbon Dioxide 34 mmol/L (21-32) H 11/05/18 09:00 Anion Gap 5 MMOL/L (8-16) L 11/05/18 09:00 BUN 26 mg/dL (7-18) H 11/05/18 09:00 Creatinine 1.4 mg/dL (0.55-1.3) H 11/05/18 09:00 Random Glucose 127 mg/dL (74-106) H 11/05/18 09:00 Calcium 9.6 mg/dL (8.5-10.1) 11/05/18 09:00 Labs noted. Assessment: 11/07/18 12:40 AOX3, in no acute distress. full rom, ambulating in the unit withdrawal symptoms. Plan: continue detox
[2018-11-07] MEDS: ENALAPRIL MALEATE 10 MG TABLET (FP) PO SCH (17:19)
[2018-11-07] MEDS: THIAMINE HCL 100 MG TABLET (FP) PO SCH (22:27)
[2018-11-07] MEDS: LIDOCAINE PATCH REMOVAL MC SCH (22:41)
[2018-11-08 06:35] VITALS: TEMP 97.9
[2018-11-08] MEDS: LIDOCAINE 5% TOPICAL PATCH TP SCH (10:24)
[2018-11-08] MEDS: chlordiazePOXIDE HCL 10 MG CAPSULE PO SCH (10:24)
[2018-11-08] MEDS: amLODIPine BESYLATE 10 MG TABLET (FP) PO SCH (10:24)
[2018-11-08] MEDS: PRENATAL VITAMINS W/ FOLIC ACID TABLET (FP) PO SCH (10:24)
[2018-11-08] MEDS: ASPIRIN 81 MG CHEWABLE TABLETS PO SCH (10:24)
[2018-11-08] MEDS: CHLORTHALIDONE 25 MG TABLET PO SCH (10:26)
[2018-11-08 11:23] VITALS: BP 129/82; PULSE 70
--- NOTE | 2018-11-08 12:40 | DS ---
[facility] Detox Discharge Summary Admission Date: 11/04/18 Discharge Date: 11/08/18 - History Present History: Alcohol Dependence, Cannabis Dependence, Cocaine Dependence Additional Comments: Patient completed detox successfully and accepted admission to [facility]. Pertinent Past History: Alcohol dependence Cocaine dependence Cannabis dependence Alcohol related seizure precaution Nicotine dependence HTN History of left breast cancer: s/p lumpectomy and chemotherapy History of Positive PPD - Physical Exam Results Vital Signs: Vital Signs Temperature 97.9 F 11/08/18 06:00 Pulse Rate 70 11/08/18 10:00 Respiratory Rate 18 11/08/18 10:00 Blood Pressure 129/82 11/08/18 10:00 O2 Sat by Pulse Oximetry (%) Pertinent Admission Physical Exam Findings: Withdrawal symptoms Laboratory Tests 11/04/18 11/05/18 11/05/18 12:51 09:00 09:00 WBC 6.2 RBC 4.53 Hgb 15.1 Hct 45.1 MCV 99.7 H MCH 33.4 MCHC 33.5 RDW 15.4 Plt Count 221 D MPV 9.7 Absolute Neuts (auto) 3.3 Total Counted 100 Neutrophils % 53.5 Neutrophils % (Manual) 62.0 Band Neutrophils % 1.0 Lymphocytes % 31.4 Lymphocytes % (Manual) 30.0 Monocytes % 9.0 Monocytes % (Manual) 2 L Eosinophils % 4.9 H Eosinophils % (Manual) 4.0 Basophils % 1.2 Basophils % (Manual) 0.0 Myelocytes % (Man) 2 Nucleated RBC % 0 Macrocytosis 1+ Sodium 142 Potassium 3.7 Chloride 102 Carbon Dioxide 34 H Anion Gap 5 L BUN 26 H Creatinine 1.4 H Est GFR (CKD-EPI)AfAm 49.25 Est GFR (CKD-EPI)NonAf 42.49 Random Glucose 127 H Calcium 9.6 Total Bilirubin 0.5 AST 26 ALT 41 Alkaline Phosphatase 120 H Total Protein 7.1 Albumin 3.7 POC Urine HCG, Qual Negative RPR Titer 11/05/18 09:00 WBC RBC Hgb Hct MCV MCH MCHC RDW Plt Count MPV Absolute Neuts (auto) Total Counted Neutrophils % Neutrophils % (Manual) Band Neutrophils % Lymphocytes % Lymphocytes % (Manual) Monocytes % Monocytes % (Manual) Eosinophils % Eosinophils % (Manual) Basophils % Basophils % (Manual) Myelocytes % (Man) Nucleated RBC % Macrocytosis Sodium Potassium Chloride Carbon Dioxide Anion Gap BUN Creatinine Est GFR (CKD-EPI)AfAm Est GFR (CKD-EPI)NonAf Random Glucose Calcium Total Bilirubin AST ALT Alkaline Phosphatase Total Protein Albumin POC Urine HCG, Qual RPR Titer Nonreactive Labs reviewed: serum creatinine 1.4, serum glucose 127 (encouraged PO water hydration, repeat bmp - Treatment Hospital Course: Detox Protocol Followed, Detoxed Safely, Responded well, Discharged Condition Good, Rehab Referral Accepted - Medication Discharge Medications: Ambulatory Orders Chlorthalidone 12.5 mg PO DAILY 08/27/17 Amlodipine Besylate [Norvasc -] 10 mg PO DAILY #30 tablet 09/07/17 Aspirin [ASA -] 81 mg PO DAILY #30 tab.chew 09/07/17 Enalapril Maleate [Vasotec -] 10 mg PO DAILY@1800 #30 tablet 09/07/17 Metoprolol Succinate [Toprol Xl] 50 mg PO DAILY 11/04/18 Folic Acid 1 mg PO DAILY 11/08/18 Lidocaine 5% Patch [Lidoderm Patch -] 2 patch TP DAILY 11/08/18 Triamcinolone Acetonide 1 applic TP BID PRN 11/08/18 - Diagnosis (1) Cannabis dependence Current Visit: Yes Status: Chronic (2) Alcohol related seizure Current Visit: Yes Status: Chronic (3) HTN (hypertension), benign Current Visit: Yes Status: Chronic (4) History of left breast cancer Current Visit: Yes Status: Chronic (5) ANGELITA (acute kidney injury) Current Visit: Yes Status: Acute (6) Hyperglycemia Current Visit: Yes Status: Acute (7) Alcohol dependence with uncomplicated withdrawal Current Visit: Yes Status: Acute (8) PPD positive Current Visit: Yes Status: Chronic (9) Cocaine dependence Current Visit: Yes Status: Chronic (10) Nicotine dependence Current Visit: Yes Status: Chronic - AMA Did Patient Leave Against Medical Advice: No (Patient accepted admission to [facility])
--- NOTE | 2018-11-08 15:41 | EKG ---
Test Reason : Blood Pressure : / mmHG Vent. Rate : 090 BPM Atrial Rate : 090 BPM P-R Int : 136 ms QRS Dur : 088 ms QT Int : 392 ms P-R-T Axes : 055 019 093 degrees QTc Int : 479 ms NORMAL SINUS RHYTHM MODERATE VOLTAGE CRITERIA FOR LVH, MAY BE NORMAL VARIANT T WAVE ABNORMALITY, CONSIDER LATERAL ISCHEMIA PROLONGED QT ABNORMAL ECG WHEN COMPARED WITH ECG OF 21-AUG-2017 18:23, INVERTED T WAVES HAVE REPLACED NONSPECIFIC T WAVE ABNORMALITY IN ANTERIOR LEADS Confirmed by ROBERT DUTTON MD ([id number]) on 11/08/2018 3:41:22 PM Referred By: YUDI OLMEDO Confirmed By:ROBERT DUTTON MD
== END 2018-11-08 11:05 | disposition other institution (70) | DRG 774 ==
LOC: YASAS 10:44 → Y6N 15:32
PROVIDERS: ADMIT Surgery; ATTEND Surgery
PROC: HZ2ZZZZ Detoxification Services for Substance Abuse Treatment (ICD-10-PCS; principal; 2018-11-04)
DX: F10.230 Alcohol dependence with withdrawal, uncomplicated (principal); F14.20 Cocaine dependence, uncomplicated; F12.20 Cannabis dependence, uncomplicated; F17.220 Nicotine dependence, chewing tobacco, uncomplicated; G40.509 Epileptic seizures related to external causes, not intractable, without status epilepticus; N17.9 Acute kidney failure, unspecified; I10 Essential (primary) hypertension; E86.0 Dehydration; R76.11 Nonspecific reaction to tuberculin skin test without active tuberculosis; Z85.3 Personal history of malignant neoplasm of breast
CPT/HCPCS: 36415; 80053; 81025; 85025; 86593; 93005; 93010

== ENCOUNTER 2018-11-08 11:11 | Inpatient (IN) | payer OTHER ==
--- NOTE | 2018-11-08 12:54 | HP ---
JOSE PEREZ Rehab Assess/Revision - Admission History Admitted to Rehab from: [facility] Date of Admission to Rehab: 11/08/2018 - Vital signs Vital Signs: Vital Signs Period Temp Pulse Resp BP Sys/Finley Pulse Ox Last 24 Hr 97.6 F 92 18 138/88 - Findings Detox History & Physical reviewed: Yes Concur with findings: Yes Inpatient Rehab Admission - Rehab Decision to Admit Inpatient rehab admission?: Yes - Initial Determination Are CD services needed?: No Free of communicable disease: Yes Not in need of hospitalization: No - Rehab Admission Criteria Previous failed treatment: Yes Poor recovery environment: Yes Comorbidities: Yes Lacks judgement: Yes Patient is meeting Inpatient Rehab admission criteria:: Yes
[2018-11-08] MEDS ORDERED: MAGNESIUM CITRATE 300 ML BOTTLE PO PRN (12:55)
[2018-11-08] MEDS ORDERED: LOPERAMIDE HCL 2 MG CAPSULE PO PRN (12:55)
[2018-11-08] MEDS ORDERED: MENTHOL/PHENOL 1 EACH UD MM PRN (12:55)
[2018-11-08] MEDS ORDERED: ACETAMINOPHEN 325 MG TABLET (FP) PO PRN (12:55)
[2018-11-08] MEDS ORDERED: P-EPHED 60MG/TRIPROLIDI 2.5MG TABLET PO PRN (12:55)
[2018-11-08] MEDS ORDERED: hydrOXYzine PAMOATE 50 MG CAPSULE (FP) PO PRN (12:55)
[2018-11-08] MEDS ORDERED: guaiFENesin 200 MG/10 ML 10 ML UNIT-DOSE CUPS PO PRN (12:55)
--- NOTE | 2018-11-08 13:12 | PN ---
S Progress Note Note: DNP-METAL MACHINIST MEDICAL NOTE Patient with pmhx of positive PPD. HCG negative. Last chest xray was on 08/2018 which was negative of TB. Ordered for repeated chest xray in AM.
[2018-11-08] MEDS: THIAMINE HCL 100 MG TABLET (FP) PO SCH (21:02)
[2018-11-08] MEDS: LIDOCAINE PATCH REMOVAL MC SCH (21:02)
[2018-11-08] MEDS: METHOCARBAMOL 500 MG TABLET PO PRN (21:02)
[2018-11-09] MEDS ORDERED: PT OWN MED DRAWER 7, Y5N ONE (08:14)
[2018-11-09] MEDS: MAGNESIUM HYDROX 2400MG/30ML ORAL SUSPENSION 30 ML CUP PO PRN (08:50)
[2018-11-09] MEDS: ASPIRIN COATED 81 MG TABLET.EC PO SCH (09:30)
[2018-11-09] MEDS: PRENATAL VITAMINS W/ FOLIC ACID TABLET (FP) PO SCH (09:30)
[2018-11-09] MEDS: amLODIPine BESYLATE 10 MG TABLET (FP) PO SCH (09:30)
[2018-11-09] MEDS: LIDOCAINE 5% TOPICAL PATCH TP SCH (09:31)
[2018-11-09] MEDS: CHLORTHALIDONE 25 MG TABLET PO SCH (09:31)
[2018-11-09 10:09] LABS: CALCIUM 9.2 mg/dL (8.5-10.1); CREATININE 1.1 mg/dL (0.55-1.3); POTASSIUM 3.5 mmol/L (3.5-5.1)
[2018-11-09] MEDS: METHOCARBAMOL 500 MG TABLET PO PRN (13:46)
--- NOTE | 2018-11-09 14:11 | PN ---
S Progress Note Note: CBC,CMP Sodium 139 mmol/L (136-145) 11/09/18 08:30 Potassium 3.5 mmol/L (3.5-5.1) 11/09/18 08:30 Chloride 101 mmol/L (98-107) 11/09/18 08:30 Carbon Dioxide 31 mmol/L (21-32) 11/09/18 08:30 Anion Gap 7 MMOL/L (8-16) L 11/09/18 08:30 BUN 20 mg/dL (7-18) H 11/09/18 08:30 Creatinine 1.1 mg/dL (0.55-1.3) 11/09/18 08:30 Est GFR (CKD-EPI)AfAm 65.92 11/09/18 08:30 Est GFR (CKD-EPI)NonAf 56.87 11/09/18 08:30 Random Glucose 156 mg/dL (74-106) H 11/09/18 08:30 Calcium 9.2 mg/dL (8.5-10.1) 11/09/18 08:30 FBS X 3 DAYS R/O HYPERGLYCEMIA.
[2018-11-09] MEDS: LIDOCAINE PATCH REMOVAL MC SCH (21:17)
[2018-11-09] MEDS: THIAMINE HCL 100 MG TABLET (FP) PO SCH (21:18)
[2018-11-10] MEDS: PRENATAL VITAMINS W/ FOLIC ACID TABLET (FP) PO SCH (09:44)
[2018-11-10] MEDS: amLODIPine BESYLATE 10 MG TABLET (FP) PO SCH (09:44)
[2018-11-10] MEDS: ASPIRIN COATED 81 MG TABLET.EC PO SCH (09:44)
[2018-11-10] MEDS ORDERED: PT OWN MED DRAWER 7, Y5N ONE (09:45)
[2018-11-10] MEDS: LIDOCAINE 5% TOPICAL PATCH TP SCH (09:45)
[2018-11-10] MEDS: CHLORTHALIDONE 25 MG TABLET PO SCH ×2 (09:46→10:05)
[2018-11-10] MEDS ORDERED: FLUCONAZOLE 50 MG TABLET PO ONE (10:50)
--- NOTE | 2018-11-10 10:55 | PN ---
S Progress Note Note: Client c/o white cheesy discharge; was diagnosed with yeast infection at [facility] but did not take medication. Diflucan ordered empirically, Vistaril held for dose of diflucan. Will order U/A.
--- NOTE | 2018-11-10 11:04 | PN ---
[facility] Progress Note Note: Chest x-ray reviewed, no indication of TB or other pathology.
[2018-11-10] MEDS ORDERED: COLLOIDAL OATMEAL 1 BAR EACH TP PRN (15:16)
[2018-11-10] MEDS: LIDOCAINE PATCH REMOVAL MC SCH (21:27)
[2018-11-10] MEDS: THIAMINE HCL 100 MG TABLET (FP) PO SCH (21:27)
[2018-11-10] MEDS: MELATONIN 5 MG TABLETS PO PRN (21:28)
[2018-11-11] MEDS: ASPIRIN COATED 81 MG TABLET.EC PO SCH (09:24)
[2018-11-11] MEDS: CHLORTHALIDONE 25 MG TABLET PO SCH (09:25)
[2018-11-11] MEDS: ENALAPRIL MALEATE 10 MG TABLET (FP) PO SCH (09:26)
[2018-11-11] MEDS: PRENATAL VITAMINS W/ FOLIC ACID TABLET (FP) PO SCH (09:26)
[2018-11-11] MEDS: amLODIPine BESYLATE 10 MG TABLET (FP) PO SCH (09:26)
[2018-11-11] MEDS: LIDOCAINE 5% TOPICAL PATCH TP SCH (09:27)
[2018-11-11] MEDS: FOLIC ACID 1 MG TABLET (FP) PO SCH (10:02)
[2018-11-11 15:16] LABS: EPI CELLS 12.2 /HPF (0-5/HPF); HYALINE CASTS 1 /lpf (0-8); URINE APPEARANCE CLEAR; URINE BACTERIA 578.4 /hpf (NEGATIVE); URINE BILIRUBIN NEGATIVE (NEGATIVE); URINE COLOR YELLOW; URINE GLUCOSE (UA) NEGATIVE (NEGATIVE); URINE KETONE NEGATIVE (NEGATIVE); URINE LEUK ESTERASE TRACE (NEGATIVE); URINE NITRITE NEGATIVE (NEGATIVE); URINE PROTEIN NEGATIVE (NEGATIVE); URINE RBC 1 /hpf (0-4); URINE UROBILINOGEN 0.2 mg/dL (0.2-1.0); URINE WBC 8 /hpf (0-5)
[2018-11-11] MEDS: IBUPROFEN 400 MG TABLET (FP) PO PRN (16:52)
[2018-11-11] MEDS: THIAMINE HCL 100 MG TABLET (FP) PO SCH (21:32)
[2018-11-11] MEDS: LIDOCAINE PATCH REMOVAL MC SCH (21:33)
[2018-11-11] MEDS: MELATONIN 5 MG TABLETS PO PRN (22:57)
[2018-11-12] MEDS ORDERED: PT OWN MED DRAWER 7, Y5N ONE (08:35)
[2018-11-12] MEDS: ASPIRIN COATED 81 MG TABLET.EC PO SCH (09:50)
[2018-11-12] MEDS: METOPROLOL TARTRATE 50 MG TABLET (FP) PO SCH (09:50)
[2018-11-12] MEDS: amLODIPine BESYLATE 10 MG TABLET (FP) PO SCH (09:50)
[2018-11-12] MEDS: ENALAPRIL MALEATE 10 MG TABLET (FP) PO SCH (09:50)
[2018-11-12] MEDS: PRENATAL VITAMINS W/ FOLIC ACID TABLET (FP) PO SCH (09:51)
[2018-11-12] MEDS: LIDOCAINE 5% TOPICAL PATCH TP SCH (09:51)
[2018-11-12] MEDS: CHLORTHALIDONE 25 MG TABLET PO SCH (09:51)
[2018-11-12] MEDS: FOLIC ACID 1 MG TABLET (FP) PO SCH (09:52)
[2018-11-12] MEDS: THIAMINE HCL 100 MG TABLET (FP) PO SCH (21:43)
[2018-11-12] MEDS: MELATONIN 5 MG TABLETS PO PRN (21:43)
[2018-11-12] MEDS: LIDOCAINE PATCH REMOVAL MC SCH (21:44)
[2018-11-13] MEDS ORDERED: PT OWN MED DRAWER 7, Y5N ONE ×2 (08:41→09:08)
[2018-11-13] MEDS: amLODIPine BESYLATE 10 MG TABLET (FP) PO SCH (09:09)
[2018-11-13] MEDS: METOPROLOL TARTRATE 50 MG TABLET (FP) PO SCH (09:09)
[2018-11-13] MEDS: ENALAPRIL MALEATE 10 MG TABLET (FP) PO SCH (09:09)
[2018-11-13] MEDS: FOLIC ACID 1 MG TABLET (FP) PO SCH (09:09)
[2018-11-13] MEDS: ASPIRIN COATED 81 MG TABLET.EC PO SCH (09:09)
[2018-11-13] MEDS: PRENATAL VITAMINS W/ FOLIC ACID TABLET (FP) PO SCH (09:09)
[2018-11-13] MEDS: LIDOCAINE 5% TOPICAL PATCH TP SCH (09:10)
[2018-11-13] MEDS: CHLORTHALIDONE 25 MG TABLET PO SCH (11:00)
[2018-11-13] MEDS: MELATONIN 5 MG TABLETS PO PRN (21:33)
[2018-11-13] MEDS: THIAMINE HCL 100 MG TABLET (FP) PO SCH (21:33)
[2018-11-13] MEDS: LIDOCAINE PATCH REMOVAL MC SCH (21:33)
[2018-11-14] MEDS ORDERED: PT OWN MED DRAWER 7, Y5N ONE ×2 (08:46→08:48)
[2018-11-14] MEDS: ENALAPRIL MALEATE 10 MG TABLET (FP) PO SCH (09:49)
[2018-11-14] MEDS: PRENATAL VITAMINS W/ FOLIC ACID TABLET (FP) PO SCH (09:49)
[2018-11-14] MEDS: amLODIPine BESYLATE 10 MG TABLET (FP) PO SCH (09:49)
[2018-11-14] MEDS: ASPIRIN COATED 81 MG TABLET.EC PO SCH (09:49)
[2018-11-14] MEDS: FOLIC ACID 1 MG TABLET (FP) PO SCH (09:50)
[2018-11-14] MEDS: CHLORTHALIDONE 25 MG TABLET PO SCH (09:50)
[2018-11-14] MEDS: METOPROLOL TARTRATE 50 MG TABLET (FP) PO SCH (09:50)
[2018-11-14] MEDS: LIDOCAINE 5% TOPICAL PATCH TP SCH (09:51)
[2018-11-14] MEDS: MAG HYDROX/AL HYDROX/SIMETH 30 ML UNIT-DOSE CUP PO PRN (18:01)
[2018-11-14] MEDS: MELATONIN 5 MG TABLETS PO PRN (21:13)
[2018-11-14] MEDS: LIDOCAINE PATCH REMOVAL MC SCH (21:13)
[2018-11-14] MEDS: THIAMINE HCL 100 MG TABLET (FP) PO SCH (21:13)
[2018-11-15] MEDS ORDERED: PT OWN MED DRAWER 7, Y5N ONE (08:42)
[2018-11-15] MEDS: PRENATAL VITAMINS W/ FOLIC ACID TABLET (FP) PO SCH (10:04)
[2018-11-15] MEDS: ASPIRIN COATED 81 MG TABLET.EC PO SCH (10:04)
[2018-11-15] MEDS: METOPROLOL TARTRATE 50 MG TABLET (FP) PO SCH (10:04)
[2018-11-15] MEDS: ENALAPRIL MALEATE 10 MG TABLET (FP) PO SCH (10:04)
[2018-11-15] MEDS: FOLIC ACID 1 MG TABLET (FP) PO SCH (10:04)
[2018-11-15] MEDS: amLODIPine BESYLATE 10 MG TABLET (FP) PO SCH (10:05)
[2018-11-15] MEDS: LIDOCAINE 5% TOPICAL PATCH TP SCH (10:05)
[2018-11-15] MEDS: CHLORTHALIDONE 25 MG TABLET PO SCH (10:05)
[2018-11-15] MEDS ORDERED: TRIAMCINOLONE ACET 0.1% CREAM 80 GM TUBE TP SCH (14:00)
[2018-11-15] MEDS: TRIAMCINOLONE ACET 0.5% CREAM 15 GM TUBE TP SCH ×2 (17:45→21:10)
[2018-11-15] MEDS: THIAMINE HCL 100 MG TABLET (FP) PO SCH (21:09)
[2018-11-15] MEDS: MELATONIN 5 MG TABLETS PO PRN (21:10)
[2018-11-15] MEDS: LIDOCAINE PATCH REMOVAL MC SCH (21:11)
[2018-11-16] MEDS ORDERED: PT OWN MED DRAWER 7, Y5N ONE (08:20)
[2018-11-16] MEDS: ASPIRIN COATED 81 MG TABLET.EC PO SCH (10:00)
[2018-11-16] MEDS: FOLIC ACID 1 MG TABLET (FP) PO SCH (10:00)
[2018-11-16] MEDS: CHLORTHALIDONE 25 MG TABLET PO SCH (10:00)
[2018-11-16] MEDS: TRIAMCINOLONE ACET 0.5% CREAM 15 GM TUBE TP SCH ×2 (10:00→21:07)
[2018-11-16] MEDS: LIDOCAINE 5% TOPICAL PATCH TP SCH (10:01)
[2018-11-16] MEDS: amLODIPine BESYLATE 10 MG TABLET (FP) PO SCH (10:01)
[2018-11-16] MEDS: PRENATAL VITAMINS W/ FOLIC ACID TABLET (FP) PO SCH (10:01)
[2018-11-16] MEDS: METOPROLOL TARTRATE 50 MG TABLET (FP) PO SCH (10:01)
[2018-11-16] MEDS: ENALAPRIL MALEATE 10 MG TABLET (FP) PO SCH (10:02)
[2018-11-16] MEDS: LIDOCAINE PATCH REMOVAL MC SCH (21:07)
[2018-11-16] MEDS: THIAMINE HCL 100 MG TABLET (FP) PO SCH (21:07)
[2018-11-16] MEDS: MELATONIN 5 MG TABLETS PO PRN (21:08)
[2018-11-17] MEDS ORDERED: PT OWN MED DRAWER 7, Y5N ONE ×2 (08:22→19:06)
[2018-11-17] MEDS: TRIAMCINOLONE ACET 0.5% CREAM 15 GM TUBE TP SCH ×2 (09:52→21:05)
[2018-11-17] MEDS: FOLIC ACID 1 MG TABLET (FP) PO SCH (09:53)
[2018-11-17] MEDS: ASPIRIN COATED 81 MG TABLET.EC PO SCH (09:53)
[2018-11-17] MEDS: PRENATAL VITAMINS W/ FOLIC ACID TABLET (FP) PO SCH (09:53)
[2018-11-17] MEDS: METOPROLOL TARTRATE 50 MG TABLET (FP) PO SCH (09:54)
[2018-11-17] MEDS: ENALAPRIL MALEATE 10 MG TABLET (FP) PO SCH (09:54)
[2018-11-17] MEDS: amLODIPine BESYLATE 10 MG TABLET (FP) PO SCH (09:54)
[2018-11-17] MEDS: CHLORTHALIDONE 25 MG TABLET PO SCH (09:54)
[2018-11-17] MEDS: LIDOCAINE 5% TOPICAL PATCH TP SCH (09:56)
[2018-11-17] MEDS: MAGNESIUM HYDROX 2400MG/30ML ORAL SUSPENSION 30 ML CUP PO PRN (14:03)
[2018-11-17] MEDS: THIAMINE HCL 100 MG TABLET (FP) PO SCH (21:05)
[2018-11-17] MEDS: LIDOCAINE PATCH REMOVAL MC SCH (21:50)
[2018-11-17] MEDS: MELATONIN 5 MG TABLETS PO PRN (22:14)
[2018-11-18] MEDS: TRIAMCINOLONE ACET 0.5% CREAM 15 GM TUBE TP SCH ×2 (09:40→21:54)
[2018-11-18] MEDS: FOLIC ACID 1 MG TABLET (FP) PO SCH (09:41)
[2018-11-18] MEDS: LIDOCAINE 5% TOPICAL PATCH TP SCH (09:41)
[2018-11-18] MEDS: CHLORTHALIDONE 25 MG TABLET PO SCH (09:41)
[2018-11-18] MEDS: ASPIRIN COATED 81 MG TABLET.EC PO SCH (09:41)
[2018-11-18] MEDS: amLODIPine BESYLATE 10 MG TABLET (FP) PO SCH (09:42)
[2018-11-18] MEDS: PRENATAL VITAMINS W/ FOLIC ACID TABLET (FP) PO SCH (09:42)
[2018-11-18] MEDS: METOPROLOL TARTRATE 50 MG TABLET (FP) PO SCH (09:42)
[2018-11-18] MEDS: ENALAPRIL MALEATE 10 MG TABLET (FP) PO SCH (09:42)
--- NOTE | 2018-11-18 10:11 | PN ---
S Progress Note Note: Patient continues to complain of yeast infection. Will give diflucan for 3 days. Patient refusing topical treatment.
[2018-11-18] MEDS ORDERED: FLUCONAZOLE 50 MG TABLET PO SCH (10:15)
[2018-11-18] MEDS ORDERED: FLUCONAZOLE 50 MG TABLET PO ONE (12:00)
[2018-11-18] MEDS: LIDOCAINE PATCH REMOVAL MC SCH (21:54)
[2018-11-18] MEDS: THIAMINE HCL 100 MG TABLET (FP) PO SCH (21:55)
[2018-11-18] MEDS: MELATONIN 5 MG TABLETS PO PRN (22:18)
[2018-11-19] MEDS: LIDOCAINE 5% TOPICAL PATCH TP SCH (09:54)
[2018-11-19] MEDS: CHLORTHALIDONE 25 MG TABLET PO SCH (09:55)
[2018-11-19] MEDS: METOPROLOL TARTRATE 50 MG TABLET (FP) PO SCH (09:56)
[2018-11-19] MEDS: FOLIC ACID 1 MG TABLET (FP) PO SCH (09:56)
[2018-11-19] MEDS: amLODIPine BESYLATE 10 MG TABLET (FP) PO SCH (09:56)
[2018-11-19] MEDS: ASPIRIN COATED 81 MG TABLET.EC PO SCH (09:56)
[2018-11-19] MEDS: ENALAPRIL MALEATE 10 MG TABLET (FP) PO SCH (09:56)
[2018-11-19] MEDS: PRENATAL VITAMINS W/ FOLIC ACID TABLET (FP) PO SCH (09:56)
[2018-11-19] MEDS: TRIAMCINOLONE ACET 0.5% CREAM 15 GM TUBE TP SCH ×2 (09:58→21:49)
[2018-11-19] MEDS: THIAMINE HCL 100 MG TABLET (FP) PO SCH (21:48)
[2018-11-19] MEDS: LIDOCAINE PATCH REMOVAL MC SCH (21:49)
[2018-11-20] MEDS: MAG HYDROX/AL HYDROX/SIMETH 30 ML UNIT-DOSE CUP PO PRN (07:30)
[2018-11-20] MEDS: METOPROLOL TARTRATE 50 MG TABLET (FP) PO SCH (10:00)
[2018-11-20] MEDS: amLODIPine BESYLATE 10 MG TABLET (FP) PO SCH (10:00)
[2018-11-20] MEDS: ASPIRIN COATED 81 MG TABLET.EC PO SCH (10:00)
[2018-11-20] MEDS: FOLIC ACID 1 MG TABLET (FP) PO SCH (10:00)
[2018-11-20] MEDS: PRENATAL VITAMINS W/ FOLIC ACID TABLET (FP) PO SCH (10:00)
[2018-11-20] MEDS: CHLORTHALIDONE 25 MG TABLET PO SCH (10:01)
[2018-11-20] MEDS: LIDOCAINE 5% TOPICAL PATCH TP SCH (10:01)
[2018-11-20] MEDS ORDERED: PT OWN MED DRAWER 7, Y5N ONE (10:03)
[2018-11-20] MEDS: ENALAPRIL MALEATE 10 MG TABLET (FP) PO SCH (10:05)
[2018-11-20] MEDS: TRIAMCINOLONE ACET 0.5% CREAM 15 GM TUBE TP SCH ×2 (10:10→21:35)
[2018-11-20] MEDS: MAGNESIUM HYDROX 2400MG/30ML ORAL SUSPENSION 30 ML CUP PO PRN (12:44)
[2018-11-20] MEDS: MELATONIN 5 MG TABLETS PO PRN (21:34)
[2018-11-20] MEDS: THIAMINE HCL 100 MG TABLET (FP) PO SCH (21:34)
[2018-11-20] MEDS: LIDOCAINE PATCH REMOVAL MC SCH (21:35)
[2018-11-21 06:57] VITALS: TEMP 97.6
[2018-11-21] MEDS ORDERED: PT OWN MED DRAWER 7, Y5N ONE (08:46)
[2018-11-21] MEDS: ASPIRIN COATED 81 MG TABLET.EC PO SCH (09:34)
[2018-11-21] MEDS: ENALAPRIL MALEATE 10 MG TABLET (FP) PO SCH (09:34)
[2018-11-21] MEDS: PRENATAL VITAMINS W/ FOLIC ACID TABLET (FP) PO SCH (09:34)
[2018-11-21] MEDS: METOPROLOL TARTRATE 50 MG TABLET (FP) PO SCH (09:34)
[2018-11-21] MEDS: amLODIPine BESYLATE 10 MG TABLET (FP) PO SCH (09:34)
[2018-11-21] MEDS: TRIAMCINOLONE ACET 0.5% CREAM 15 GM TUBE TP SCH ×2 (09:34→21:34)
[2018-11-21] MEDS: FOLIC ACID 1 MG TABLET (FP) PO SCH (09:34)
[2018-11-21] MEDS: LIDOCAINE 5% TOPICAL PATCH TP SCH (09:36)
[2018-11-21] MEDS: CHLORTHALIDONE 25 MG TABLET PO SCH (09:36)
[2018-11-21] MEDS: IBUPROFEN 400 MG TABLET (FP) PO PRN (15:41)
[2018-11-21] MEDS: MAGNESIUM HYDROX 2400MG/30ML ORAL SUSPENSION 30 ML CUP PO PRN (18:18)
[2018-11-21] MEDS: LIDOCAINE PATCH REMOVAL MC SCH (21:33)
[2018-11-21] MEDS: THIAMINE HCL 100 MG TABLET (FP) PO SCH (21:34)
[2018-11-21] MEDS: MELATONIN 5 MG TABLETS PO PRN (22:24)
[2018-11-22] MEDS: ASPIRIN COATED 81 MG TABLET.EC PO SCH (09:42)
[2018-11-22] MEDS: TRIAMCINOLONE ACET 0.5% CREAM 15 GM TUBE TP SCH ×2 (09:42→21:22)
[2018-11-22] MEDS: FOLIC ACID 1 MG TABLET (FP) PO SCH (09:42)
[2018-11-22] MEDS: amLODIPine BESYLATE 10 MG TABLET (FP) PO SCH (09:43)
[2018-11-22] MEDS: ENALAPRIL MALEATE 10 MG TABLET (FP) PO SCH (09:43)
[2018-11-22] MEDS: METOPROLOL TARTRATE 50 MG TABLET (FP) PO SCH (09:43)
[2018-11-22] MEDS: PRENATAL VITAMINS W/ FOLIC ACID TABLET (FP) PO SCH (09:43)
[2018-11-22] MEDS: CHLORTHALIDONE 25 MG TABLET PO SCH (09:43)
[2018-11-22] MEDS: LIDOCAINE 5% TOPICAL PATCH TP SCH (09:44)
[2018-11-22 10:50] VITALS: PULSE 80
[2018-11-22] MEDS ORDERED: PT OWN MED DRAWER 7, Y5N ONE (19:45)
[2018-11-22] MEDS: LIDOCAINE PATCH REMOVAL MC SCH (21:22)
[2018-11-22] MEDS: THIAMINE HCL 100 MG TABLET (FP) PO SCH (21:22)
[2018-11-22] MEDS: MELATONIN 5 MG TABLETS PO PRN (21:22)
[2018-11-23 07:03] VITALS: BP 127/84
[2018-11-23] MEDS: amLODIPine BESYLATE 10 MG TABLET (FP) PO SCH (09:03)
[2018-11-23] MEDS: ENALAPRIL MALEATE 10 MG TABLET (FP) PO SCH (09:03)
[2018-11-23] MEDS: METOPROLOL TARTRATE 50 MG TABLET (FP) PO SCH (09:03)
[2018-11-23] MEDS: ASPIRIN COATED 81 MG TABLET.EC PO SCH (09:03)
[2018-11-23] MEDS: PRENATAL VITAMINS W/ FOLIC ACID TABLET (FP) PO SCH (09:03)
[2018-11-23] MEDS: TRIAMCINOLONE ACET 0.5% CREAM 15 GM TUBE TP SCH (09:06)
[2018-11-23] MEDS: CHLORTHALIDONE 25 MG TABLET PO SCH (09:06)
[2018-11-23] MEDS: FOLIC ACID 1 MG TABLET (FP) PO SCH (09:06)
[2018-11-23] MEDS: LIDOCAINE 5% TOPICAL PATCH TP SCH (09:07)
--- NOTE | 2018-11-23 12:24 | PN ---
[facility] Progress Note (SOAP) Subjective: PT COMPLETED REHAB AND DISCHARGED TODAY. PT MET WITH COUNSELLING AND HAS BEEN REFERRED TO [facility] FOR CD AFTERCARE. PT REPORTS SHE HAS PRIMARY CARE WITH [facility] IN [place], [place]. PH;[phone] AND WILL FOLLOW UP AFTER DISCHARGE. ALERT O X 3. DENIES S/H/I. REPORTS SHE HAS OWN MEDS. Objective: 11/23/18 12:22 Vital Signs - 24 hr 11/23/18 11/23/18 00:30 07:03 Temperature 97.6 F Pulse Rate 80 Respiratory 18 18 Rate Blood Pressure 127/84 Laboratory Tests 11/09/18 11/09/18 11/10/18 08:30 08:30 06:27 Sodium 139 Potassium 3.5 Chloride 101 Carbon Dioxide 31 Anion Gap 7 L BUN 20 H Creatinine 1.1 Est GFR (CKD-EPI)AfAm 65.92 Est GFR (CKD-EPI)NonAf 56.87 POC Glucometer 106 Random Glucose 156 H Calcium 9.2 Urine Color Urine Appearance Urine pH Ur Specific [place] Urine Protein Urine Glucose (UA) Urine Ketones Urine Blood Urine Nitrite Urine Bilirubin Urine Urobilinogen Ur Leukocyte Esterase Urine WBC (Auto) Urine RBC (Auto) Urine Casts (Auto) U Epithel Cells (Auto) Urine Bacteria (Auto) HIV 1&2 Antibody Screen Negative HIV P24 Antigen Negative 11/11/18 11/11/18 11/12/18 06:14 11:10 06:14 Sodium Potassium Chloride Carbon Dioxide Anion Gap BUN Creatinine Est GFR (CKD-EPI)AfAm Est GFR (CKD-EPI)NonAf POC Glucometer 92 109 Random Glucose Calcium Urine Color Yellow Urine Appearance Clear Urine pH 7.0 D Ur Specific [place] 1.014 Urine Protein Negative Urine Glucose (UA) Negative Urine Ketones Negative Urine Blood Negative Urine Nitrite Negative Urine Bilirubin Negative Urine Urobilinogen 0.2 Ur Leukocyte Esterase Trace Urine WBC (Auto) 8 Urine RBC (Auto) 1 Urine Casts (Auto) 1 U Epithel Cells (Auto) 12.2 Urine Bacteria (Auto) 578.4 HIV 1&2 Antibody Screen HIV P24 Antigen Home Medications Medication Instructions Recorded Chlorthalidone 12.5 mg PO DAILY 08/27/17 Amlodipine Besylate [Norvasc -] 10 mg PO DAILY #30 tablet 09/07/17 Aspirin [ASA -] 81 mg PO DAILY #30 tab.chew 09/07/17 Enalapril Maleate [Vasotec -] 10 mg PO DAILY@1800 #30 tablet 09/07/17 Metoprolol Succinate [Toprol Xl] 50 mg PO DAILY 11/04/18 Folic Acid 1 mg PO DAILY 11/08/18 Lidocaine 5% Patch [Lidoderm Patch 2 patch TP DAILY 11/08/18 -] Triamcinolone Acetonide 1 applic TP BID PRN 11/08/18 Assessment: 11/23/18 12:23 NAD MEDICALLY STABLE Plan: FOLLOW UP WITH CD AFTERCARE RECOMMENDATION FOLLOW UP WITH PRIMARY CARE WITHIN 1-2 WEEKS
== END 2018-11-23 09:20 | disposition home or self-care (01) | DRG 772 ==
LOC: YASAS 11:11 → Y3E 11:12
PROVIDERS: ADMIT Neuromusculoskeletal Medicine & OMM; ATTEND Neuromusculoskeletal Medicine & OMM
PROC: HZ42ZZZ Group Counseling for Substance Abuse Treatment, Cognitive-Behavioral (ICD-10-PCS; principal; 2018-11-08)
DX: F10.20 Alcohol dependence, uncomplicated (principal); F14.20 Cocaine dependence, uncomplicated; F12.20 Cannabis dependence, uncomplicated; F17.210 Nicotine dependence, cigarettes, uncomplicated; I10 Essential (primary) hypertension; B37.3 Candidiasis of vulva and vagina; I51.7 Cardiomegaly
CPT/HCPCS: 36415; 71046-TC-FY; 80048; 81003; 82962; 87389